=== PATIENT | female | born 1960 | race Caucasian/White ===

== ENCOUNTER 2019-04-06 05:19 | Inpatient (IN) ==
--- NOTE | 2019-02-25 09:34 | PAT Medication Instructions ---
Medication Instructions Date of Service February 25, 2019 Home Medications atorvastatin 40 mg PO QPM levothyroxine 50 mcg PO QAM meloxicam 15 mg PO DAILY PRN aspirin 81 mg PO QPM ranitidine HCl [Zantac 75] 75 mg PO DAILY PRN ASK your surgeon for instructions meloxicam 15 mg PO DAILY PRN Take morning of surgery With a small sip of water, OTHERWISE NOTHING TO EAT OR DRINK AFTER MIDNIGHT: levothyroxine 50 mcg PO QAM ranitidine HCl [Zantac 75] 75 mg PO DAILY PRN (if needed) Take evening before surgery atorvastatin 40 mg PO QPM aspirin 81 mg PO QPM ranitidine HCl [Zantac 75] 75 mg PO DAILY PRN (if needed) Other Notes If you have any questions please call us at [phone] or [phone] or [phone] or [phone]
--- NOTE | 2019-02-25 11:07 | Anesthesiology Consultation ---
Date of Service February 25, 2019 Assessment & Plan (1) Encounter for pre-operative examination: - Check BSG AM DOS Chart Review Chart Review: Acceptable Risk for Surgery (pending preop (labs, EKG, CXR)) and Patient seen in Pre Admission Testing Teaching & Discussion Pre-Anesthesia Teaching/Discussion Notes: Instructed NPO after midnight before surgery,except medications with 15 cc of water. Medication instructions provided according to the PAT guidelines. History Surgery Operation Date: 04/06/19 08:50 Proposed Procedures p Left Total Knee Replacement - Jewel Burdick MD Height/Weight Height: 5 ft 5 in Weight: 121 kg Allergies Allergy/AdvReac Type Severity Reaction Status Date / Time No Known Allergies Allergy Verified 02/19/19 11:07 Medications Home Medications Medication Instructions Recorded Confirmed Last Taken atorvastatin 40 mg PO QPM 03/24/18 02/19/19 04/23/18 23:00 levothyroxine 50 mcg PO QAM 03/24/18 02/19/19 04/23/18 09:00 meloxicam 15 mg PO DAILY PRN 03/24/18 02/19/19 04/10/18 aspirin 81 mg PO QPM 02/19/19 02/19/19 Unknown ranitidine HCl [Zantac 75] 75 mg PO DAILY PRN 02/19/19 02/19/19 Unknown Past Medical History Medical History Carpal tunnel syndrome of left wrist Diabetes mellitus, type 2 diet controlled Hyperlipidemia Hypothyroidism Morbid obesity Osteoarthritis Exercise / Class Metabolic Activity II 4-5 Yardwork/Stairs/Walk up hill Past Family History Family History Father Family history of diabetes mellitus Past Surgical History Surgical History History of arthroscopy bl knee History of colonoscopy History of surgery bone marrow donation History of tonsillectomy History of total right knee replacement Right TKA: 04/24/18: SAB at L3-L4 + PNB at [facility] Past Anesthesia History No Hx of Anesthesia Complications (except PONV (no issues with more recent right TKA)) and No Family Hx of Anesthesia Complications History of PONV History of PONV and Hx of Motion Sickness (occasional) Social History Smoking Status: Never smoker Do You Dip or Chew Tobacco: No Hx Alcohol Use: Yes Alcohol type: beer, wine and hard liquor alcohol intake frequency: holidays/special occasions only Hx Substance Use: No Review of Systems Occasional reflux. Patient denies chest pain, shortness of breath, dyspnea on exertion, cough, wheezing, palpitations. Physical Exam Vital Signs VITALS BP 114/77 P 80 TEMP 98.1 SP02 95%RA RESP 16 PHYSICAL Full neck and c-spine range of motion. Full TMJ range of motion. TMD 3.5 finger breaths Mallampati Score 2 Dentition: caps several "all over", missing sides/molars Lungs: clear throughout to auscultation Cardiac: regular rate and rhythm, no murmurs noted Spine: normal Carotid arteries: negative bruit Extremities: no edema Short, thick neck
--- NOTE | 2019-02-25 11:41 | XRay Report ---
TWO VIEW CHEST CLINICAL HISTORY: Preoperative examination. FINDINGS: PA and lateral chest radiographs are compared to study dated 04/03/2018. The heart is top n ormal for projection, noting atherosclerotic calcification of the thoracic aorta. There are low lung volumes with bibasilar atelectasis. The lungs and pleural spaces are otherwise clear. There is no pne umothorax. The skeletal structures are osteopenic. The bony thorax appears intact. Degenerative taylor e and mild hyperkyphosis is noted in the thoracic spine. IMPRESSION: No active disease in the chest. Electronically signed by: Theo Gilman M.D. 02/25/2019 11:40 AM
[2019-02-25 13:11] LABS: Basophils # (auto) 0.02 K/uL (0-0.2); Basophils % (auto) 0.3 %; Eosinophils # (auto) 0.25 K/uL (0-0.5); Eosinophils % (auto) 3.7 %; Hematocrit (blood only) 39.8 % (37-47); Immature Granulocytes # (auto) 0.01 K/uL (0.00-0.02); Immature Granulocytes % (auto) 0.1 %; Lymphocytes # (auto) 2.31 K/uL (1.2-3.4); Lymphocytes % (auto) 34.3 %; Mean Corpuscular Hemoglobin 27.8 pg (25-34); Mean Corpuscular Hgb Conc 32.7 g/dL (32-36); Mean Platelet Volume 10.3 fL (7.4-10.4); Monocytes % (auto) 7.4 %; Neutrophils # (auto) 3.64 K/uL (1.4-6.5); Neutrophils % (auto) 54.2 %; Platelet Count 275 K/uL (130-400); RDW Coefficient of Variation 13.6 % (11.5-14.5); Red Blood Count 4.68 M/uL (4.2-5.4); White Blood Count 6.73 K/uL (4.8-10.8)
[2019-02-25 13:22] LABS: BUN Creatinine Ratio 19.1 (10-20); Calcium 8.6 mg/dl (8.5-10.1); Creatinine Clr Calc Pharmacy 90.9 ml/min; Est GFR (African American) 83.4; Est GFR (Non-African American) 71.9; Potassium 4.3 mmol/L (3.5-5.1)
[2019-02-25 13:23] LABS: C Reactive Protein 1.08 mg/dl (0-0.29)
[2019-02-25 13:25] LABS: Partial Thromboplastin Time 27.2 Seconds (21.0-31.0); Prothrombin Time 9.8 Seconds (9.0-12.0)
--- NOTE | 2019-04-02 09:32 | History and Physical Report ---
DATE OF ADMISSION: 04/06/2019 CHIEF COMPLAINT: Persistent left knee pain and discomfort. HISTORY OF PRESENT ILLNESS: A 58-year-old white female who is now about 10 months out from right knee replacement, who presents for surgical treatment of her left knee. She has got a long history of left knee pain and discomfort that has gradually gotten worse over time. She has been through extensive conservative treatment including multiple injections which have become less successful over time. Her walking tolerance is only a couple of blocks and limited by knee pain. She has difficulty going up and down steps. She has nighttime pain. Very happy with the right knee and would like to have her left knee replaced. PAST MEDICAL HISTORY: 1. Diabetes x1 year. 2. Elevated cholesterol. PAST SURGICAL HISTORY: Previous surgeries include: 1. Right knee scope x2. 2. Left knee arthroscopy. 3. Bursal excision from the right knee. 4. Bone marrow donor in 1992. 5. Right knee replacement done on 04/24/2018. ALLERGIES: None. CURRENT MEDICINES: Include: 1. Metformin 500 mg twice a day. 2. Meloxicam 15 mg. 3. Atorvastatin 40 mg. 4. Levothyroxine 50 mcg a day. 5. Baby aspirin. SOCIAL HISTORY: A 58-year-old female. No significant alcohol intake. Does not smoke. FAMILY HISTORY: Significant for diabetes. REVIEW OF SYSTEMS: Significant for early diabetes. Denies any chest pain or shortness of breath. No history of DVT or PE. No known bleeding problems. PHYSICAL EXAMINATION: GENERAL: Shows a healthy, pleasant middle-aged female. Looks to be in pretty good health. HEENT: Benign. NECK: Supple, no lymphadenopathy. LUNGS: Clear to auscultation. HEART: Regular rate and rhythm. ABDOMEN: Soft, nontender, nondistended. EXTREMITIES: Grossly neurovascularly intact except as follows: Examination of the left knee reveals slight varus alignment. She is tender over the medial joint line. Small knee effusion. Range of motion about 5 degrees short of full extension to 120 degrees of flexion. There is no instability. She is neurologically intact. No pain with hip motion. Examination of the right knee reveals well-healed incision. Minimal to no swelling. Range of motion 0-120. Good straight leg raise. X-RAYS: X-rays of the left knee reviewed. Shows advanced left knee DJD. She has got complete loss of medial joint space. She has subchondral sclerosis. The right knee replacement looks to be in good position. ASSESSMENT: A 58-year-old white female 10 plus months out from a right knee replacement with advanced left knee degenerative joint disease. She has failed conservative treatment. She would like to proceed with a left knee replacement. PLAN: We will take her to the operating room and do a left total knee replacement. The risks and benefits of this procedure were explained to the patient including but not limited to DVT, PE, , infection, neurological injury, vascular injury, bleeding problem, pain, limited range of motion, stiffness, failure to relieve symptoms, incomplete relief of symptoms, need for further surgery in future, fracture, leg length inequality, nerve palsy, etc. The patient understands and desires to proceed. Informed consent was obtained. As far as pain control, we will use Tylenol and Toradol and oxycodone postoperatively and transition her to tramadol. She should be able to be discharged to home using [facility] home health program.
[2019-04-06] MEDS ORDERED: METOCLOPRAMIDE HCL 10 MG TABLET PO SCH (06:00)
[2019-04-06] MEDS ORDERED: LR 60ML/HR IV SCH (06:00)
[2019-04-06] MEDS ORDERED: CEFAZOLIN 3000MG 72.5 ML IV SCH (06:00)
[2019-04-06] MEDS ORDERED: ACETAMINOPHEN 500 MG TAB PO SCH (06:00)
[2019-04-06] MEDS ORDERED: BUPIVACAINE LIPOSOME/PF 266 MG, BUPIVACAINE/EPINEPHRINE 50 ML, SODIUM CHLORIDE 0.9% 30 ... INFIL SCH (06:00)
[2019-04-06] MEDS ORDERED: LR 500ML BOLUS, THEN 15ML/HR IV SCH (06:00)
[2019-04-06] MEDS ORDERED: GABAPENTIN 600 MG DOSE PO SCH (06:00)
[2019-04-06] MEDS ORDERED: SCOPOLAMINE 1.5 MG TDSY TD SCH (06:00)
[2019-04-06] MEDS ORDERED: FAMOTIDINE 20 MG TAB PO SCH (06:00)
[2019-04-06] MEDS ORDERED: MIDAZOLAM HCL 1 MG/ML 2ML VIAL ONE ×2 (06:23→06:42)
[2019-04-06] MEDS ORDERED: BUPIVACAINE/EPINEPHRINE 0.25% 1:200,000 30 ML VIAL ONE (06:27)
[2019-04-06] MEDS ORDERED: BUPIVACAINE LIPOSOME 1.3% 266 MG/20 ML VIAL ONE (06:28)
[2019-04-06] MEDS ORDERED: BACITRACIN INJ 50,000 UNIT VIAL ONE (06:28)
[2019-04-06] MEDS ORDERED: SODIUM CHLORIDE 0.9% PF 50 ML VIAL ONE (06:28)
[2019-04-06] MEDS ORDERED: KETAMINE HCL INJ 50 MG/ML 10 ML VIAL ONE (06:29)
[2019-04-06] MEDS ORDERED: TRANEXAMIC ACID 1,000 MG **IV Intra-op IV SCH (06:30)
[2019-04-06] MEDS ORDERED: ROPIVACAINE 0.5% 5 MG/ML 30 ML VIAL ONE (06:31)
[2019-04-06] MEDS ORDERED: BUPIVACAINE 0.5 % 5 MG/1 ML PF 10ML VIAL ONE (06:31)
--- NOTE | 2019-04-06 06:53 | History & Physical Bridge Note ---
Date of Service April 06, 2019 History & Physical Bridge Note I have examined the patient, reviewed the History & Physical and in the interval since the performance of the History & Physical I have noted the following changes of clinical significance: no changes noted
[2019-04-06] MEDS ORDERED: ePHEDrine sulfate 50 MG/ML AMP IV PRN (07:07)
[2019-04-06] MEDS ORDERED: ATROPINE SULFATE 0.1 MG/ML 10ML SYR IV PRN (07:07)
[2019-04-06] MEDS ORDERED: DEXAMETHASONE SOD INJ 4 MG/ML VIAL ONE (07:12)
[2019-04-06] MEDS ORDERED: GLYCOPYRROLATE 0.2 MG/ML VIAL ONE (07:12)
[2019-04-06] MEDS ORDERED: PROPOFOL IV EMULSION 10 MG/ML 20 ML VIAL IV ONE ×3 (07:12→07:44)
[2019-04-06] MEDS ORDERED: LIDOCAINE HCL 2% 2 ML VIAL/AMP(20MG/ML) INFIL ONE (07:12)
[2019-04-06] MEDS ORDERED: ONDANSETRON INJ 2 MG/ML 2 ML VIAL ONE (07:12)
[2019-04-06] MEDS ORDERED: fentaNYL citrate 100 MCG/2 ML VIAL ONE (08:47)
--- NOTE | 2019-04-06 08:52 | Operative Report ---
Post Operative Report Pre & Post Diagnosis Operation Date: 04/06/19 07:00 Pre-Op Diagnosis: Left Knee Degenerative Joint Disease w/Knee Pain Post-Op Diagnosis: Left Knee Degenerative Joint Disease w/Knee Pain I identified the patient and participated in the time-out.: Yes Procedure Operation Date: 04/06/19 07:00 Actual Procedures p Left Total Knee Replacement(Left) - eJwel Burdick MD Surgeon Jewel Burdick MD Product Design Manager Paty, PAC Estimated Blood Loss 50 Findings Consistent with Post-Op Diagnosis Operative findings revealed advanced left knee DJD with a grade 4 [id number] disease of the medial and patellofemoral compartments. She had a fixed varus deformity to her knee. Osteophytes in the medial and posterior compartments. Moderate sized joint effusion. Fixed varus deformity to her knee. 10 degree flexion contracture. Fluids 1500 cc Specimens Left knee sent for pathology Drains None Anesthesia Type Spinal MAC Complications none Disposition Accompanied Patient To Recovery: No Disposition: Recovery Room Indications 58-year-old female with a long history of bilateral knee pain and discomfort. She is been through extensive conservative treatment in the past. She did undergo a right knee replacement 1 year ago and is done excellent with this. She continues to be limited by left knee pain discomfort. X-ray showed advanced left knee DJD. She like to proceed with left total knee arthroplasty. Description of Procedure Operative implants consisted of: 1. Biomet Vanguard size 62.5 left posterior stabilized femoral component. 2. Biomet Vanguard size 67 tibial tray. 3. 10 mm posterior stabilized polyethylene insert. 4. 25 x 8 all poly-patella. Patient was taken to the operating room identified and placed on the operating table supine position. All contact areas were appropriately padded. IV antibiotics were provided by the anesthesia team. A spinal anesthetic and abductor canal block had been provided in the holding area. A Gordon catheter was placed in sterile fashion. A left eye turn was then placed in the left lower extremity was then prepped and draped in usual sterile fashion. The left leg was elevated and exsanguinated use of an Esmarch interspace at 300 mmHg. An anterior approach to the left knee was then performed to a longitudinal incision centered over the patella. Sharp dissection was carried through the subcutaneous tissue down to level the extensor mechanism. A medial parapatellar patellar arthrotomy was then performed. Some subperiosteal dissection was carried out medially. The fat pad was resected from beneath the patella tendon. The lateral patellofemoral ligament was released. The patella was subluxated laterally and the knee was flexed. The osteophytes taken off the distal femur. The ACL and PCL were then released from the distal femur and the tibia subluxated anteriorly. The external tibial alignment jig was then placed in the interface of the tibia and the proximal tibial cut was made to remove about a millimeter bone from the most efficient aspect the medial tibial plateau. The tibia was sized to size 67. Some osteophytes were taken off medial and posterior medially. Attention down the femur. New breath distal femur was then with a sharp drill bit intramedullary canal was suction. A left 5 degree valgus cutting guide was placed. The distal femoral cutting block was pinned in place. Distal femoral cut was made to take an additional 3 mm of bone off the distal femur. The femur was then sized to a size 62.5. We did down size this slightly. The AP cutting block was pinned parallel to the epicondylar axis which was 5 degrees of external rotation. The anterior cut, and chamfer, posterior cut, posterior chamfer cuts were made. Box cutting guide was placed and just slightly lateral and the box cut was made to the knee was flexed. The remnants of the medial lateral menisci were excised with the osteophytes were taken off the posterior aspect of the femur. A trial femoral component was placed. The tibial tray was pinned in maximum external rotation and the drill and stem punch were used to create the defect in the proximal tip for the tibial tray. The knee was then trialed the 10 mm insert fit most appropriately. Attention drawn of the patella. The patella was cleaned of all soft tissues. Patella thickness measured 18 mm in thickness was cut down to 12 it was sized to a size 25 patella. Lug holes were drilled for the 25 patella. The lateral osteophyte was removed. Patella button was placed. Knee was taken through range of motion patella tracked nicely with no thumbs test. Attention drawn toward placing the permanent components. All trial components were removed. Bone plug was placed in the distal femur to limit blood loss. The knee was irrigated with copious amounts of pulsatile lavage solution. A double batch Palacos G cement was mixed. A [email or web address] size 62.5 left posterior bifemoral component, size 67 tibial tray, a 10 mm posterior stabilized polyethylene insert, and F 25 x 8 all poly-patella then cement in place. Knees brought down to full extension until cement hardened. Final cement check was then performed. The pericapsular tissues were then injected with a total of 100 cc of combination of 20 cc of Exparel, 30 cc of normal saline, 50 cc of quarter percent Marcaine with epinephrine. The patient did receive 1 g of tranexamic acid. The tourniquet was then let down for tourniquet time 58 minutes. Hemostasis assured with electrocautery. The wounds once again irrigated. The extensor mechanism then closed with a combination of 1 PDS suture #1 Vicryl suture in a [id number] fashion with extensive medical checked and found to be intact with sucutaneous tissue then closed with 2 Dexon suture in a buried interrupted fashion skin was closed skin gustavo. Leg was then cleaned dried a sterile dressing composed of Xeroform, 4 x 4's, sterile cast padding, Adam bandage were then applied. The patient then transferred to the recovery room in stable condition. The patient tolerated the procedure well no comp case but all needle sponge counts are correct at the end the operation. I attest to the content of the Intraoperative Record and any orders documented therein. Any exceptions are noted below.
--- NOTE | 2019-04-06 09:09 | XRay Report ---
XR knee LT 2V routine CLINICAL HISTORY: Surgical Post Op DEGENERATIVE ARTHRITIS COMPARISON: January 25, 2019 DISCUSSION: There are postsurgical changes of a total left knee arthroplasty and patellar resurfacing . The femoral tibial components appear well seated. Overlying skin gustavo are evident. There is air within the soft tissues consistent with recent surgery. There is no evidence for soft tissue swelling . IMPRESSION: Postsurgical changes of a total left knee arthroplasty. Electronically signed by: Primo Rojas M.D. 04/06/2019 9:07 AM
--- NOTE | 2019-04-06 10:34 | Anesthesiology Progress Note ---
Date of Service April 06, 2019 Anesthesia Post Procedure Vital Signs Vital Signs: Temp Pulse Pulse Resp BP Pulse Ox 04/06/19 10:30 101 H 15 143/77 H 92 04/06/19 10:20 37.4 C 98 H 18 122/76 96 04/06/19 10:10 97 H 15 135/81 94 04/06/19 10:00 98 H 14 138/70 96 04/06/19 09:50 101 H 19 138/68 95 04/06/19 09:40 99 H 17 128/64 94 04/06/19 09:30 94 H 17 136/65 95 04/06/19 09:20 97 H 23 115/68 95 04/06/19 09:10 103 H 13 114/57 L 94 04/06/19 09:00 101 H 21 129/60 94 04/06/19 08:50 37.4 C 103 H 17 125/66 94 04/06/19 06:06 37.1 C 93 H 20 155/92 H 95 Transfer of Care Handoff Completed per policy Notes Mental Status: alert / awake / arousable and participated in evaluation Patient Amnestic to Procedure: Yes Nausea / Vomiting: adequately controlled Pain: adequately controlled Airway Patency, RR, SpO2: stable & adequate BP & HR: stable & adequate Hydration State: stable & adequate Neuraxial Anesthesia: was administered and sensory block is resolving Anesthetic Complications: no major complications apparent
[2019-04-06] MEDS ORDERED: CARBOHYDRATES FOR HYPOGLYCEMIA PO PRN ×2 (11:04→12:00)
[2019-04-06] MEDS ORDERED: METOCLOPRAMIDE HCL INJ 5 MG/ML 2 ML VIAL IV PRN (11:04)
[2019-04-06] MEDS ORDERED: NALOXONE HCL 0.4 MG/1 ML VIAL/CARP IV PRN (11:04)
[2019-04-06] MEDS ORDERED: GLUCOSE 40% GEL 15 GM TUBE PO PRN ×2 (11:04→12:00)
[2019-04-06] MEDS ORDERED: MAGNESIUM HYDROXIDE SUSP 30 ML UDC PO PRN (11:04)
[2019-04-06] MEDS ORDERED: GLUCAGON FOR INJ 1 MG VIAL SQ PRN (11:04)
[2019-04-06] MEDS ORDERED: PHARMACY GLYCEMIC MGMT CONSULT STA (11:04)
[2019-04-06] MEDS ORDERED: HYDROmorphone INJ 0.5 MG/0.5 ML SYR IV PRN (11:04)
[2019-04-06] MEDS ORDERED: bisacodyL 10 MG SUPP PR PRN (11:04)
[2019-04-06] MEDS ORDERED: GLUCOSE 10 TABS/TUBE PO PRN ×2 (11:04→12:00)
[2019-04-06] MEDS ORDERED: ALUMINUM/MAGNESIUM SUSP 30 ML UDC PO PRN (11:04)
[2019-04-06] MEDS ORDERED: DEXTROSE 50% 50 ML SYRINGE IV PRN ×2 (11:04→12:00)
[2019-04-06] MEDS ORDERED: ONDANSETRON INJ 2 MG/ML 2 ML VIAL IV PRN (11:04)
[2019-04-06] MEDS ORDERED: PHARMACY GLYCEMIC MGMT CONSULT PRN (11:41)
[2019-04-06] MEDS ORDERED: SODIUM CHLORIDE 0.9% 1000ML 1,000 ML IV SCH (11:45)
[2019-04-06] MEDS ORDERED: GLUCAGON FOR INJ 1 MG VIAL IM PRN (12:00)
[2019-04-06] MEDS ORDERED: NovoLIN-N (NPH) PER UNIT CHARGE SQ SCH (13:00)
[2019-04-06] MEDS: KETOROLAC 30 MG/ML VIAL IV SCH ×3 (13:05→23:29)
[2019-04-06] MEDS: MULTIVITAMIN TAB PO SCH (13:06)
[2019-04-06] MEDS: DOCUSATE SODIUM 100 MG CAP PO SCH ×2 (13:06→21:15)
[2019-04-06] MEDS: ASPIRIN 81 MG ECTAB PO SCH ×2 (13:06→21:16)
[2019-04-06] MEDS: INSULIN ASPART 100 UNITS/ML 3 ML PEN SC SCH ×4 (13:07→23:37)
[2019-04-06] MEDS: TAPENTADOL HCL ER 50 MG TABCR PO SCH ×2 (13:11→21:21)
--- NOTE | 2019-04-06 14:03 | Progress Note ---
DATE: 04/06/2019 SUBJECTIVE: A 58-year-old female postop from a left knee replacement. She is doing pretty well. Just starting to get the feeling and sensation back in her leg. Not much pain yet. No chest pain or shortness of breath. Not feeling dizzy or lightheaded. OBJECTIVE: VITAL SIGNS: Temperature 36.7. Vital signs stable. GENERAL: Shows a pleasant, middle-aged female. She is sitting up in bed and talking to some family members. She looks comfortable. LUNGS: Clear to auscultation. HEART: Has regular rate and rhythm. ABDOMEN: Soft, nontender, nondistended. EXTREMITIES: Grossly neurovascularly intact except as follows: Examination of the left lower extremity reveals the leg to be well aligned. Dressing is clean, dry and intact. She can dorsiflex and plantarflex her foot appropriately. She is neurologically intact. X-RAYS: Left knee from recovery room reviewed. It shows a cemented posterior stabilized total knee arthroplasty. Components looked to be in good position. No signs of problems. ASSESSMENT: 58-year-old white female postop from a left knee replacement, doing well. Her pain is controlled. She is neurologically intact. PLAN: 1. DVT prophylaxis including thigh-high TEDs, SCDs, and aspirin twice a day. 2. PT/OT. Weight bear as tolerated. Left total knee protocol. 3. Pain control, doing pretty well with current pain regimen. 4. IV antibiotics x24 hours. 5. Disposition: Plan to discharge to home with some home health once adequately recovered and medically stable.
[2019-04-06] MEDS: ACETAMINOPHEN 500 MG TAB PO SCH ×2 (14:16→21:16)
[2019-04-06] MEDS: OXYCODONE HCL IR 5 MG TAB (IMMEDIATE RELEASE) PO PRN (14:19)
--- NOTE | 2019-04-06 14:40 | Pharmacy Report ---
Pharmacy Glycemic Short Note 2 - Date of Service April 06, 2019 - Glycemic Short BSG Results (Last 24 hours): 04/06/19 04/06/19 04/06/19 05:39 08:57 11:55 POC Glucose 169 H 153 H 177 H OUTPATIENT ANTIDIABETIC REGIMEN: * Confirmed with patient she does NOT take metformin or any other anti-diabetic medication ASSESSMENT: * 58 year old admitted post knee replacement. A1c from last year was 6.8%. Ordered with AM labs. Will use adjusted body weight for weight based insulin calculation given obesity. Dexamethasone 4 mg IV X 1 was given this morning in the OR. Will give a one time weight based stress of one NPH dose to help cover steroid effects. I will also add overnight checks. PLAN FOR INPATIENT GLYCEMIC CONTROL: * Hold outpatient oral diabetes medications * Basal insulin * NPH 15 units X 1 * Bolus insulin * NovoLog per scale ACHS and [id number] * Goal Range: Low 110 mg/dL - High 140 mg/dL (140-180 for overnight checks) * Correction Factor: 25 mg/dL/unit * Nutritional / Prandial insulin per carb ratio of 1 unit per 8 grams CHO consumed PLAN FOR DISCHARGE: * pending
[2019-04-06] MEDS ORDERED: TRANEXAMIC ACID 1,000 MG in 0.9 % SODIUM CHLORIDE 100 ML IV SCH (14:53)
[2019-04-06] MEDS: CEFAZOLIN 2000MG 2,000 MG/15 ML SYR IV SCH ×2 (14:58→23:28)
[2019-04-06] MEDS: CHECK SCOPOLAMINE PATCH PLACEMENT SCH ×2 (17:05→23:57)
[2019-04-06] MEDS: FERROUS GLUCONATE 324 MG TAB PO SCH (17:50)
[2019-04-06] MEDS: ASCORBIC ACID 500 MG TAB PO SCH (17:50)
[2019-04-06] MEDS: SENNA 8.6 MG TAB PO SCH (21:15)
[2019-04-06] MEDS: ATORVASTATIN 40 MG TAB PO SCH (21:16)
[2019-04-07] MEDS: INSULIN ASPART 100 UNITS/ML 3 ML PEN SC SCH ×5 (04:14→20:58)
[2019-04-07 05:03] LABS: Hematocrit (blood only) 32.5 % (37-47); Hemoglobin 10.7 g/dL (12.0-16.0); Mean Corpuscular Hemoglobin 27.8 pg (25-34); Mean Corpuscular Hgb Conc 32.9 g/dL (32-36); Mean Corpuscular Volume 84.4 fL (80-100); Mean Platelet Volume 9.5 fL (7.4-10.4); Platelet Count 250 K/uL (130-400); RDW Coefficient of Variation 13.4 % (11.5-14.5); Red Blood Count 3.85 M/uL (4.2-5.4)
[2019-04-07] MEDS: ACETAMINOPHEN 500 MG TAB PO SCH ×3 (05:36→21:56)
[2019-04-07] MEDS: LEVOTHYROXINE SODIUM 50 MCG TABLET PO SCH (05:36)
[2019-04-07] MEDS: KETOROLAC 30 MG/ML VIAL IV SCH ×3 (05:36→17:48)
[2019-04-07 05:45] LABS: BUN Creatinine Ratio 16.6 (10-20); Calcium 8.1 mg/dl (8.5-10.1); Creatinine Clr Calc Pharmacy 83.6 ml/min; Est GFR (African American) 75.1; Est GFR (Non-African American) 64.8; Potassium 4.2 mmol/L (3.5-5.1)
[2019-04-07 06:28] LABS: Estimated Average Glucose 160 mg/dl; Hemoglobin A1C 7.2 % (4.5-5.6)
[2019-04-07] MEDS: MULTIVITAMIN TAB PO SCH (08:43)
[2019-04-07] MEDS: TAPENTADOL HCL ER 50 MG TABCR PO SCH ×2 (08:43→21:00)
[2019-04-07] MEDS: FERROUS GLUCONATE 324 MG TAB PO SCH ×2 (08:44→17:32)
[2019-04-07] MEDS: ASCORBIC ACID 500 MG TAB PO SCH ×2 (08:44→17:32)
[2019-04-07] MEDS: ASPIRIN 81 MG ECTAB PO SCH ×2 (08:44→21:00)
[2019-04-07] MEDS: DOCUSATE SODIUM 100 MG CAP PO SCH ×2 (08:44→21:00)
[2019-04-07] MEDS: OXYCODONE HCL IR 5 MG TAB (IMMEDIATE RELEASE) PO PRN ×2 (08:50→15:22)
--- NOTE | 2019-04-07 09:25 | Pharmacy Report ---
Pharmacy Glycemic Short Note 2 - Date of Service April 07, 2019 - Glycemic Short BSG Results (Last 24 hours): 04/06/19 04/06/19 04/06/19 11:55 17:22 21:01 Glucose POC Glucose 177 H 144 H 143 H 04/06/19 04/07/19 04/07/19 23:36 04:05 04:36 Glucose 122 H POC Glucose 209 H 159 H 04/07/19 08:11 Glucose POC Glucose 123 H OUTPATIENT ANTIDIABETIC REGIMEN: * Confirmed with patient she does NOT take metformin or any other anti-diabetic medication ASSESSMENT: 04/07/19 * POD 1 TKA - A1c 7.2% on no medications as outpatient, see recommendations below * Blood sugars at goal, no changes in inpatient regimen, discontinue overnight accuchecks. 04/06/19 * 58 year old admitted post knee replacement. A1c from last year was 6.8%. Ordered with AM labs. Will use adjusted body weight for weight based insulin calculation given obesity. Dexamethasone 4 mg IV X 1 was given this morning in the OR. Will give a one time weight based stress of one NPH dose to help cover steroid effects. I will also add overnight checks. PLAN FOR INPATIENT GLYCEMIC CONTROL: * Bolus insulin * NovoLog per scale ACHS * Goal Range: Low 110 mg/dL - High 140 mg/dL * Correction Factor: 25 mg/dL/unit * Nutritional / Prandial insulin per carb ratio of 1 unit per 8 grams CHO consumed PLAN FOR DISCHARGE: * A1c = 7.2 % on 04/07/19, and patient on no antidiabetic medications at home. * Goal A1c = <6.5 % based on age and comorbidities, if this can be achieved without significant hypoglycemia or other adverse effects of treatment. * Recommend starting Metformin XR 500mg PO daily with evening meal. Typically the XR formulation of metformin is better tolerated than the immediate release formulation. Continue to titrate metformin dosing upwards as recommended. Dosage increases should be made in increments of 500 mg weekly, up to 2,000 m g/day PO, given in divided doses. Doses above 2000 mg/day may be better tolerated if divided and given 3 times per day with meals. Max: 2,550 mg/day PO, in divided doses * Support Patient Self-Management oHealthy Lifestyle (diet, exercise, and smoking cessation) oDisease self-management (SMBG) oPrevention of complications (BP, Lipid goals, Immunizations) oConsider outpatient Diabetes Self-Management Education & Support
--- NOTE | 2019-04-07 12:48 | Progress Note ---
DATE: 04/07/2019 SUBJECTIVE: A 58-year-old white female postop day 1 from a left knee replacement. She is doing okay. Had a bit of pain overnight but doing better this morning. No chest pain or shortness of breath. Not feeling dizzy or lightheaded. OBJECTIVE: VITAL SIGNS: Temperature 36.7. Vital signs are stable. GENERAL: Reveals a pleasant, middle-aged female who is sitting up in her bed, looks pretty comfortable. EXTREMITIES: Examination of the left leg reveals the dressing to be clean, dry and intact. She can dorsiflex and plantarflex her foot appropriately. She is neurologically intact. LABORATORY DATA: Hemoglobin is 10.7. Hematocrit 32.5. White cell count is slightly elevated at 11.40. Electrolytes are stable. ASSESSMENT: A 58-year-old white female, diabetic, postoperative day 1 from a left knee replacement, doing reasonably well. Pain is controlled. She is anemic, but without symptoms. PLAN: 1. DVT prophylaxis including thigh-high TEDs, SCDs, and aspirin twice a day. 2. PT/OT. Weight bear as tolerated. Left total knee protocol. 3. Pain control, doing pretty well with current pain regimen. 4. Anemia. Currently, asymptomatic. We will continue iron supplementation. 5. Disposition: She is planning to be discharged home with some home health once adequately recovered and medically stable.
[2019-04-07] MEDS: SENNA 8.6 MG TAB PO SCH (21:00)
[2019-04-07] MEDS: ATORVASTATIN 40 MG TAB PO SCH (21:00)
[2019-04-08] MEDS: KETOROLAC 30 MG/ML VIAL IV SCH ×2 (00:18→05:46)
[2019-04-08] MEDS: LEVOTHYROXINE SODIUM 50 MCG TABLET PO SCH (05:46)
[2019-04-08] MEDS: ACETAMINOPHEN 500 MG TAB PO SCH (05:46)
--- NOTE | 2019-04-08 07:37 | Progress Note ---
DATE: 04/08/2019 SUBJECTIVE: A 58-year-old white female postop day 2 from a left knee replacement. She is doing pretty well. Pain seems to be better this morning. No chest pain or shortness of breath. Not feeling dizzy or lightheaded. OBJECTIVE: VITAL SIGNS: Temperature 36.7. Vital signs stable. GENERAL: Reveals a pleasant, middle-aged female. She is sitting up in bed, looks comfortable. EXTREMITIES: Examination of the left leg reveals the dressing to be clean, dry and intact. She can dorsiflex and plantarflex her foot appropriately. Calf is soft and supple. She is neurologically intact. ASSESSMENT: A 58-year-old white female postoperative day 2 from a left knee replacement, doing well. Pain is controlled. She is neurologically intact. PLAN: 1. DVT prophylaxis including thigh-high TEDs, SCDs, and aspirin twice a day. 2. PT/OT. Weight bear as tolerated. Left total knee protocol. 3. Pain control, doing pretty well with current pain regimen. 4. Disposition: Plan to discharge to home with some home health later today.
[2019-04-08] MEDS: TAPENTADOL HCL ER 50 MG TABCR PO SCH (08:54)
[2019-04-08] MEDS: FERROUS GLUCONATE 324 MG TAB PO SCH (08:54)
[2019-04-08] MEDS: MULTIVITAMIN TAB PO SCH (08:54)
[2019-04-08] MEDS: ASPIRIN 81 MG ECTAB PO SCH (08:54)
[2019-04-08] MEDS: ASCORBIC ACID 500 MG TAB PO SCH (08:55)
[2019-04-08] MEDS: DOCUSATE SODIUM 100 MG CAP PO SCH (08:55)
[2019-04-08] MEDS: INSULIN ASPART 100 UNITS/ML 3 ML PEN SC SCH ×2 (09:01→12:55)
--- NOTE | 2019-04-14 11:29 | Discharge Summary ---
DATE OF ADMISSION: 04/06/2019 DATE OF DISCHARGE: 04/08/2019 ADMITTING PHYSICIAN AND SURGEON: Dr. Jewel Burdick. ADMITTING DIAGNOSIS: Left knee degenerative joint disease. SURGERY PERFORMED: Left total knee arthroplasty. SECONDARY DIAGNOSES: Diabetes, elevated cholesterol. CONSULTS: None obtained. HISTORY AND PHYSICAL EXAMINATION: Well documented in the patient's chart. HOSPITAL COURSE: The patient was admitted on 04/06/2019, underwent total knee arthroplasty, tolerated the procedure well. There were no complications. She was transferred to the PACU postoperatively and later to the orthopedic floor for further care. She was given Ancef for antibiotic prophylaxis, DIMA stockings, SCDs and aspirin for DVT prophylaxis. Hemoglobin, hematocrit and vital signs were monitored during her hospital stay and remained stable. She did not require any blood transfusions. There were no complications. On postoperative day #2, she was tolerating a diabetic diet. Pain was controlled with oral pain medicine. She was participating in physical therapy. Postop day #2, she was discharged home, set up with home health services. She was given printed discharge instructions as well as new prescriptions for extra strength Tylenol, aspirin, iron supplement and oxycodone. Continue her home medications, continue physical therapy, weightbearing as tolerated, DIMA stockings. Follow up approximately 2 weeks postop or sooner if there are any problems or concerns.
== END 2019-04-08 13:09 | disposition home health service (06) | DRG 470 ==
LOC: ASU 05:19 → 3E 08:56